=== PATIENT | female | born 1995 | race Caucasian/White ===

== ENCOUNTER → 2019-07-02 17:33 | Outpatient (BNVA) | payer OTHER, SELFPAY | PROVIDERS: Family Provider Family Medicine; Visit Provider Nurse Practitioner Family | DX: R39.9 Unspecified symptoms and signs involving the genitourinary system (principal); R10.9 Unspecified abdominal pain; Z86.19 Personal history of other infectious and parasitic diseases; R10.32 Left lower quadrant pain | CPT/HCPCS: 81000; 81025; 87491; 87591 ==

== ENCOUNTER 2019-07-12 13:30 | Emergency (ER) | payer OTHER, SELFPAY ==
[2019-07-12 13:37] VITALS: BP 165/97; PULSE 114; RESP 16; TEMP 36.7; O2SAT 99; BMI 27.1
--- NOTE | 2019-07-12 13:56 | ED_ITS ---
Documented by User: JARED Castellon 07/13/19 08:06 HPI - Female Genitourinary General: Chief complaint: Urogenital-Female Stated complaint: flank pain Time Seen by Provider: 07/12/19 13:36 History of Present Illness: HPI Narrative: Patient is a 23-year-old female comes to the ED with left flank pain. Patient has a past medical history of kidney stones. Left flank pain started about 2 weeks ago and has not gone away. Patient was seen on June 30 at urgent care and urinalysis there showed no acute findings or UTI. Left flank pain is rated a 7 out of 10. Patient has had Depo shot and does not have periods. Denies being . She denies any dysuria, hematuria, fever, chills, nausea or vomiting. Associated symptoms: Deny abdominal pain, headache(s) or nausea Review of Systems Const: Denies: fever, chills or fatigue Eyes: Denies: change in vision or eye discomfort ENMT: Denies: throat pain, painful swallowing, nasal discharge or nasal congestion Card: Denies: chest pain, palpitations, edema, swelling of feet/ankles, shortness of breath on exertion or shortness of breath when lying down Resp: Denies: shortness of breath, productive cough or non-productive cough GI: Denies: abdominal pain, nausea, vomiting, diarrhea, constipation or blood in stool : Reports: flank pain; Denies: painful urination or blood in urine Musc: Denies: neck pain, back pain or extremity swelling Skin/Breast: Denies: rash or new lesion Neuro: Denies: headache, numbness in extremities or weakness in extremities [facility] ED PFSH: Social History Smoking and tobacco status: current every day smoker Physical Exam Const: COMMON NORMALS: no apparent distress, oriented x3, healthy appearing and alert GENERAL APPEARANCE: cooperative, comfortable and well hydrated HENMT: COMMON NORMALS: normocephalic HEAD & SCALP: normocephalic MOUTH: oral and palatal mucosa normal THROAT: posterior oropharynx normal and uvula midline Eye: COMMON NORMALS: PERRL PUPIL: Yes PERRL Neck/C-Spine: COMMON NORMALS: supple GENERAL: Yes normal visual inspection Resp: COMMON NORMALS: normal respiratory effort, no retractions, no use of accessory muscles and clear to auscultation bilaterally AUSCULTATION: clear to auscultation bilaterally Cardio: COMMON NORMALS: regular rate, regular rhythm, S1 normal heart sound, S2 normal heart sound, no gallops, no clicks, no murmurs and peripheral pulses 2+ throughout RATE: regular rate RHYTHM: regular rhythm HEART SOUNDS: S1 normal and S2 normal PERIPHERAL PULSES: pulses 2+ throughout GI: COMMON NORMALS: normal to inspection, nondistended, normoactive bowel sounds, soft to palpation and no masses PALPATION: Yes soft, Yes tender Details: LLQ (mild tenderness) and No rebound tenderness present : BLADDER/KIDNEY EXAM: Yes CVA tenderness on the left (mild tenderness) Back/Pelvis: GENERAL BACK: Yes CVA tenderness Extremity: COMMON NORMALS: normal to inspection and no pedal edema Neuro: COMMON NORMALS: oriented x3 and moves all extremities SENSORIUM/ORIENTATION: Yes alert Skin: COMMON NORMALS: no rashes or lesions noted GENERAL SKIN EXAM: no rashes or lesions noted and dry skin Course Vital Signs: Vital signs: Vital Signs Temperature 98.0 F 07/12/19 13:37 Pulse Rate 79 07/12/19 18:18 Respiratory Rate 14 07/12/19 18:18 Blood Pressure 102/57 07/12/19 18:18 Pulse Oximetry 97 07/12/19 18:18 MDM - Female MDM Narrative: Medical decision making narrative: Patient is a 23-year-old female who comes to the ED with left flank and left lower quadrant abdominal pain. Physical exam was remarkable for some mild CVA tenderness on the left side and left lower quadrant tenderness. CBC CMP were normal and unremarkable. UA was unremarkable as well and showed no blood. KUB was normal. Patient was diagnosed with left lower quadrant abdominal pain and told to take Tylenol or ibuprofen for the pain. Patient was told to return to ED if symptoms worsen. Patient understood and agreed with plan. Lab Data: Attestation: I reviewed the patient's lab results. Labs: Lab Results 07/12/19 07/12/19 07/12/19 Range/Units 13:45 14:34 14:34 WBC 9.7 (4.0-10.0) 10^3/ uL RBC 4.83 (4.1-5.3) 10^6/u L Hgb 13.1 (11.5-15.3) g/dL Hct 42.3 (37.0-47.0) % MCV 87.6 (81-99) fL MCH 27.1 L (28.0-34.0) pg MCHC 31.0 (30.0-36.0) g/dL RDW 14.0 (12.1-15.1) % Plt Count 310 (130-400) 10^3/c mm MPV 11.3 H (7.4-10.4) fL Neut % (Auto) 65.3 % Lymph % (Auto) 24.8 % Snyder % (Auto) 8.0 % Eos % (Auto) 1.0 % Baso % (Auto) 0.6 % Neut # (Auto) 6.3 (1.8-7.7) 10^3/u L Lymph # (Auto) 2.4 (0.8-4.8) 10^3/u L Snyder # (Auto) 0.8 (0.2-0.9) 10^3/u L Eos # (Auto) 0.1 (0.0-0.8) 10^3/u L Baso # (Auto) 0.1 (0.0-0.1) 10^3/u L Nucleated RBC % (a uto) 0 % Nucleated RBCs # 0.0 /100WBC Sodium 141 (136-145) mmol/L Potassium 4.2 (3.5-5.1) mmol/L Chloride 105 (98-107) mmol/L Carbon Dioxide 24 (22-29) mmol/L Anion Gap 16.2 (5-19) BUN 10 (6-20) mg/dL Creatinine 0.8 (0.5-0.9) mg/dL GFR Calculation 88.9 L (90-130) mL/min Glucose 104 (65-115) mg/dL Calculated Osmolal ity 288 (285-295) mOsm/k g Calcium 9.3 (8.5-10.5) mg/dL Total Bilirubin 0.3 (0.15-1.2) mg/dL AST 13 (0-32) U/L ALT 11 (0-33) U/L Alkaline Phosphata se 62 (35-105) IU/L Total Protein 6.5 L (6.6-8.7) g/dL Albumin 4.3 (3.5-5.2) g/dL Globulin 2.2 (1.3-4.6) g/dL HCG, Qual (Negative) Urine Color Yellow (Yellow) Urine Appearance Clear (CLEAR) Urine pH 5 (5-7) Ur Specific Gravit y 1.020 (1.005-1.030) Urine Protein Neg (Negative) Urine Glucose (UA) Norm (Normal) Urine Ketones Negative (Negative) Urine Blood Neg (Negative) Urine Nitrate Negative (Negative) Urine Bilirubin Neg (NEGATIVE) Urine Urobilinogen Norm (Negative) mg/dL Ur Leukocyte Ryanne ase Negative (Negative) Urine RBC None (0-2) /hpf Urine WBC 0-4 H (0-5) /hpf Ur Squamous Epith Cells 0-4 H (0-5) Urine Bacteria Trace (NONE) Urine Mucus Trace 07/12/19 Range/Units 14:34 WBC (4.0-10.0) 10^3/ uL RBC (4.1-5.3) 10^6/u L Hgb (11.5-15.3) g/dL Hct (37.0-47.0) % MCV (81-99) fL MCH (28.0-34.0) pg MCHC (30.0-36.0) g/dL RDW (12.1-15.1) % Plt Count (130-400) 10^3/c mm MPV (7.4-10.4) fL Neut % (Auto) % Lymph % (Auto) % Snyder % (Auto) % Eos % (Auto) % Baso % (Auto) % Neut # (Auto) (1.8-7.7) 10^3/u L Lymph # (Auto) (0.8-4.8) 10^3/u L Snyder # (Auto) (0.2-0.9) 10^3/u L Eos # (Auto) (0.0-0.8) 10^3/u L Baso # (Auto) (0.0-0.1) 10^3/u L Nucleated RBC % (a uto) % Nucleated RBCs # /100WBC Sodium (136-145) mmol/L Potassium (3.5-5.1) mmol/L Chloride (98-107) mmol/L Carbon Dioxide (22-29) mmol/L Anion Gap (5-19) BUN (6-20) mg/dL Creatinine (0.5-0.9) mg/dL GFR Calculation (90-130) mL/min Glucose (65-115) mg/dL Calculated Osmolal ity (285-295) mOsm/k g Calcium (8.5-10.5) mg/dL Total Bilirubin (0.15-1.2) mg/dL AST (0-32) U/L ALT (0-33) U/L Alkaline Phosphata se (35-105) IU/L Total Protein (6.6-8.7) g/dL Albumin (3.5-5.2) g/dL Globulin (1.3-4.6) g/dL HCG, Qual Negative (Negative) Urine Color (Yellow) Urine Appearance (CLEAR) Urine pH (5-7) Ur Specific Gravit y (1.005-1.030) Urine Protein (Negative) Urine Glucose (UA) (Normal) Urine Ketones (Negative) Urine Blood (Negative) Urine Nitrate (Negative) Urine Bilirubin (NEGATIVE) Urine Urobilinogen (Negative) mg/dL Ur Leukocyte Ryanne ase (Negative) Urine RBC (0-2) /hpf Urine WBC (0-5) /hpf Ur Squamous Epith Cells (0-5) Urine Bacteria (NONE) Urine Mucus Imaging Data: CT Abd/Pel: Attestation: I personally reviewed and interpreted this imaging study as follows: Radiologist's impression: [place] [address] CT Scan Report Signed Patient: Juan Benson Unit #: [id number] : 1995 Age/Sex: 23 / F ADM Date: 07/12/19 Loc: ER Room/Bed: Attending Dr: Ordering Provider/Ordering MD: Chandrakant Mars Date of Service: 07/12/19 Procedure(s): CT abdomen pelvis w con* [id number] Accession Number(s): [id number] Report Number: [id number] PROCEDURE INFORMATION: Exam: CT Abdomen And Pelvis With Contrast Exam date and time: 07/12/2019 4:29 PM Age: 23 years old Clinical indication: Abdominal pain; Right; Patient HX: R flank pain w HX of stones; Additional info: Llq pain and left flank pain TECHNIQUE: Imaging protocol: Computed tomography of the abdomen and pelvis with intravenous contrast. Radiation optimization: All CT scans at this facility use at least one of these dose optimization techniques: automated exposure control; mA and/or kV adjustment per patient size (includes targeted exams where dose is matched to clinical indication); or iterative reconstruction. Contrast material: OMNI 300; Contrast volume: 95 ml; Contrast route: 20G COMPARISON: US Pelvis Female [id number] 01/03/2017 5:05 PM FINDINGS: Liver, spleen, pancreas, kidneys, and adrenal glands appear unremarkable. There are metallic clips adjacent to cecum. Bowel loops do not appear significantly dilated. No large amount of free fluid demonstrated. Abdominal aorta does not appear dilated. Visualized lung bases demonstrate no significant opacification. CT/CT abdomen pelvis w con* [id number] IMPRESSION: No acute process is demonstrated. Total DLP: 846.72 mGy-cm Radiation Dose CTDIVOL = (mGy): DLP = 846.72 (mGy-cm) Dictated By: Charlotte Mckeon MD Signed By: Charlotte Mckeon MD Signed Date/Time: 07/12/191716 DD/ 15 KUB: Attestation: I personally reviewed and interpreted this imaging study as fol lows: Radiologist's impression: [address] [address] XRay Report Signed Patient: Juan Benson Unit #: [id number] : 1995 Age/Sex: 23 / F ADM Date: 07/12/19 Loc: ER Room/Bed: Attending Dr: Ordering Provider/Ordering MD: Chandrakant Mars Date of Service: 07/12/19 Procedure(s): XR KUB portable 08254 Accession Number(s): [id number] Report Number: [id number] WS: [id number] XR KUB portable [id number] REASON FOR EXAM: LLQ abdominal pain and left flank pain FINDINGS: Fecal stasis changes are identified throughout the colon area. No definite stones are seen in the region of the right or left kidneys. No pneumoperitoneum. No definite air-fluid levels. XR/XR KUB portable [id number] IMPRESSION: Nonspecific abdominal findings. Dictated By: Josue Gomez DO Signed By: Josue Gomez DO Signed Date/Time: 07/13/19752 DD/ 2 Discharge Plan Discharge Patient Disposition: Home, Self-Care Clinical Impression: Abdominal pain Qualifiers: Abdominal location: left lower quadrant Qualified Code(s): R10.32 - Left lower quadrant pain Condition: Stable Prescriptions: No Action Depo-Estradiol 5 mg/mL oil See Rx Instructions .ROUTE .COMPLEX RF: 0 dicyclomine 10 mg capsule 10 mg PO QID PRN (Reason: UNKNOWN) RF: 0 montelukast [Singulair] 10 mg tablet 10 mg PO DAILY RF: 0 cetirizine 10 mg Tablet 10 mg PO DAILY RF: 0 ibuprofen 200 mg Tablet 200 mg PO Q6H PRN (Reason: Pain) RF: 0 Discharge Orders: Discharge Order (Routine); Ordered 07/12/19 Ordered By: Vivek Mcgee Discharge Diet: Advance as tolerated Discharge Activity: Increase activity as tolerated Patient Instructions: Abdominal Pain (ED) Activity Restrictions/Additional Instructions: Follow-up with medical provider as directed. Take ibuprofen Tylenol and/or tramadol as needed follow-up Dr. Hahn this week. Return to the ER or your medical provider if condition worsens. Please read and understand discharge instructions. If any questions ask please. Discharge Date/Time: 07/12/19 18:18 Coding Level of Care Code ED Research Technician for Chg Fwd Exam Comprehensive Documented by User: NATHALIE Feng 07/13/19 03:17 HPI - Female Genitourinary General: Chief complaint: Urogenital-Female Stated complaint: flank pain Time Seen by Provider: 07/12/19 13:36 PFSH ED PFSH: Social History Smoking and tobacco status: current every day smoker Course Vital Signs: Vital signs: Vital Signs Temperature 98.0 F 07/12/19 13:37 Pulse Rate 79 07/12/19 18:18 Respiratory Rate 14 07/12/19 18:18 Blood Pressure 102/57 07/12/19 18:18 Pulse Oximetry 97 07/12/19 18:18 MDM - Female Lab Data: Labs: Lab Results 07/12/19 07/12/19 07/12/19 Range/Units 13:45 14:34 14:34 WBC 9.7 (4.0-10.0) 10^3/ uL RBC 4.83 (4.1-5.3) 10^6/u L Hgb 13.1 (11.5-15.3) g/dL Hct 42.3 (37.0-47.0) % MCV 87.6 (81-99) fL MCH 27.1 L (28.0-34.0) pg MCHC 31.0 (30.0-36.0) g/dL RDW 14.0 (12.1-15.1) % Plt Count 310 (130-400) 10^3/c mm MPV 11.3 H (7.4-10.4) fL Neut % (Auto) 65.3 % Lymph % (Auto) 24.8 % Snyder % (Auto) 8.0 % Eos % (Auto) 1.0 % Baso % (Auto) 0.6 % Neut # (Auto) 6.3 (1.8-7.7) 10^3/u L Lymph # (Auto) 2.4 (0.8-4.8) 10^3/u L Snyder # (Auto) 0.8 (0.2-0.9) 10^3/u L Eos # (Auto) 0.1 (0.0-0.8) 10^3/u L Baso # (Auto) 0.1 (0.0-0.1) 10^3/u L Nucleated RBC % (a uto) 0 % Nucleated RBCs # 0.0 /100WBC Sodium 141 (136-145) mmol/L Potassium 4.2 (3.5-5.1) mmol/L Chloride 105 (98-107) mmol/L Carbon Dioxide 24 (22-29) mmol/L Anion Gap 16.2 (5-19) BUN 10 (6-20) mg/dL Creatinine 0.8 (0.5-0.9) mg/dL GFR Calculation 88.9 L (90-130) mL/min Glucose 104 (65-115) mg/dL Calculated Osmolal ity 288 (285-295) mOsm/k g Calcium 9.3 (8.5-10.5) mg/dL Total Bilirubin 0.3 (0.15-1.2) mg/dL AST 13 (0-32) U/L ALT 11 (0-33) U/L Alkaline Phosphata se 62 (35-105) IU/L Total Protein 6.5 L (6.6-8.7) g/dL Albumin 4.3 (3.5-5.2) g/dL Globulin 2.2 (1.3-4.6) g/dL HCG, Qual (Negative) Urine Color Yellow (Yellow) Urine Appearance Clear (CLEAR) Urine pH 5 (5-7) Ur Specific Gravit y 1.020 (1.005-1.030) Urine Protein Neg (Negative) Urine Glucose (UA) Norm (Normal) Urine Ketones Negative (Negative) Urine Blood Neg (Negative) Urine Nitrate Negative (Negative) Urine Bilirubin Neg (NEGATIVE) Urine Urobilinogen Norm (Negative) mg/dL Ur Leukocyte Ryanne ase Negative (Negative) Urine RBC None (0-2) /hpf Urine WBC 0-4 H (0-5) /hpf Ur Squamous Epith Cells 0-4 H (0-5) Urine Bacteria Trace (NONE) Urine Mucus Trace 07/12/19 Range/Units 14:34 WBC (4.0-10.0) 10^3/ uL RBC (4.1-5.3) 10^6/u L Hgb (11.5-15.3) g/dL Hct (37.0-47.0) % MCV (81-99) fL MCH (28.0-34.0) pg MCHC (30.0-36.0) g/dL RDW (12.1-15.1) % Plt Count (130-400) 10^3/c mm MPV (7.4-10.4) fL Neut % (Auto) % Lymph % (Auto) % Snyder % (Auto) % Eos % (Auto) % Baso % (Auto) % Neut # (Auto) (1.8-7.7) 10^3/u L Lymph # (Auto) (0.8-4.8) 10^3/u L Snyder # (Auto) (0.2-0.9) 10^3/u L Eos # (Auto) (0.0-0.8) 10^3/u L Baso # (Auto) (0.0-0.1) 10^3/u L Nucleated RBC % (a uto) % Nucleated RBCs # /100WBC Sodium (136-145) mmol/L Potassium (3.5-5.1) mmol/L Chloride (98-107) mmol/L Carbon Dioxide (22-29) mmol/L Anion Gap (5-19) BUN (6-20) mg/dL Creatinine (0.5-0.9) mg/dL GFR Calculation (90-130) mL/min Glucose (65-115) mg/dL Calculated Osmolal ity (285-295) mOsm/k g Calcium (8.5-10.5) mg/dL Total Bilirubin (0.15-1.2) mg/dL AST (0-32) U/L ALT (0-33) U/L Alkaline Phosphata se (35-105) IU/L Total Protein (6.6-8.7) g/dL Albumin (3.5-5.2) g/dL Globulin (1.3-4.6) g/dL HCG, Qual Negative (Negative) Urine Color (Yellow) Urine Appearance (CLEAR) Urine pH (5-7) Ur Specific Gravit y (1.005-1.030) Urine Protein (Negative) Urine Glucose (UA) (Normal) Urine Ketones (Negative) Urine Blood (Negative) Urine Nitrate (Negative) Urine Bilirubin (NEGATIVE) Urine Urobilinogen (Negative) mg/dL Ur Leukocyte Ryanne ase (Negative) Urine RBC (0-2) /hpf Urine WBC (0-5) /hpf Ur Squamous Epith Cells (0-5) Urine Bacteria (NONE) Urine Mucus Discharge Plan Discharge Patient Disposition: Home, Self-Care Clinical Impression: Abdominal pain Qualifiers: Abdominal location: left lower quadrant Qualified Code(s): R10.32 - Left lower quadrant pain Condition: Stable Prescriptions: No Action Depo-Estradiol 5 mg/mL oil See Rx Instructions .ROUTE .COMPLEX RF: 0 dicyclomine 10 mg capsule 10 mg PO QID PRN (Reason: UNKNOWN) RF: 0 montelukast [Singulair] 10 mg tablet 10 mg PO DAILY RF: 0 cetirizine 10 mg Tablet 10 mg PO DAILY RF: 0 ibuprofen 200 mg Tablet 200 mg PO Q6H PRN (Reason: Pain) RF: 0 Discharge Orders: Discharge Order (Routine); Ordered 07/12/19 Ordered By: Vivek Mcgee Discharge Diet: Advance as tolerated Discharge Activity: Increase activity as tolerated Patient Instructions: Abdominal Pain (ED) Activity Restrictions/Additional Instructions: Follow-up with medical provider as directed. Take ibuprofen Tylenol and/or tramadol as needed follow-up Dr. Hahn this week. Return to the ER or your [facility] provider if condition worsens. Please read and understand discharge instructions. If any questions ask please. Discharge Date/Time: 07/12/19 18:18 Coding Level of Care Code ED Research Technician for Cecil Fwren Exam Comprehensive
[2019-07-12 14:37] VITALS: BP 145/81; PULSE 108; RESP 14; O2SAT 99
[2019-07-12] MEDS: sodium chloride 0.9% 1,000 ML 999 ML IV (14:37)
[2019-07-12] MEDS: morphine 4 mg/mL SDV 1 mL IVP (14:38)
[2019-07-12] MEDS: ondansetron 2 mg/ML SDV 2 mL 4 MG IVP (14:38)
[2019-07-12 14:56] LABS: Basophils # 0.1 10^3/uL (0.0-0.1); Basophils % 0.6 %; Eosinophils # 0.1 10^3/uL (0.0-0.8); Hematocrit 42.3 % (37.0-47.0); Hemoglobin 13.1 g/dL (11.5-15.3); Lymphocytes # 2.4 10^3/uL (0.8-4.8); Lymphocytes % 24.8 %; Mean Corpuscular Hemoglobin 27.1 pg (28.0-34.0); Mean Corpuscular Volume 87.6 fL (81-99); Mean Platelet Volume 11.3 fL (7.4-10.4); Monocytes # 0.8 10^3/uL (0.2-0.9); Neutrophils # 6.3 10^3/uL (1.8-7.7); Neutrophils % 65.3 %; Nucleated Red Blood Cells % 0 %; Platelet Count 310 10^3/cmm (130-400); Red Blood Count 4.83 10^6/uL (4.1-5.3); White Blood Count 9.7 10^3/uL (4.0-10.0)
[2019-07-12 15:04] LABS: HCG, Serum Qual Negative (Negative)
--- NOTE | 2019-07-12 15:08 | XR_ITS ---
WS: [id number] XR KUB portable [id number] REASON FOR EXAM: LLQ abdominal pain and left flank pain FINDINGS: Fecal stasis changes are identified throughout the colon area. No definite stones are seen in the region of the right or left kidneys. No pneumoperitoneum. No definite air-fluid levels. XR/XR KUB portable [id number] IMPRESSION: Nonspecific abdominal findings.
[2019-07-12 15:14] LABS: Bilirubin Urine Neg (NEGATIVE); Blood Urine Neg (Negative); Glucose Urine UA Norm (Normal); Ketones Urine Negative (Negative); Leukocyte Esterase Urine Negative (Negative); Nitrate Urine Negative (Negative); Protein Urine Neg (Negative); Urine Appearance Clear (CLEAR); Urine Color Yellow (Yellow); Urobilinogen Urine Norm (Negative); pH Urine 5 (5-7)
[2019-07-12 15:16] LABS: Bacteria Urine TRACE; Mucus Urine TRACE; Squamous Epithelial Cell Urine 0-4 (0-5); WBC Urine 0-4 /hpf (0-5)
[2019-07-12 15:17] LABS: Add Urine Culture? No
[2019-07-12 15:19] LABS: Alanine Aminotransferase 11 U/L (0-33); Albumin Level 4.3 g/dL (3.5-5.2); Alkaline Phosphatase 62 IU/L (35-105); Anion Gap 16.2 (5-19); Aspartate Amino Transferase 13 U/L (0-32); Blood Urea Nitrogen 10 mg/dL (6-20); Calcium 9.3 mg/dL (8.5-10.5); Carbon Dioxide 24 mmol/L (22-29); Chloride 105 mmol/L (98-107); Globulin 2.2 g/dL (1.3-4.6); Glomerular Filtration Rate 88.9 mL/min (90-130); Glucose 104 mg/dL (65-115); Osmolality Calculated 288 mOsm/kg (285-295); Potassium 4.2 mmol/L (3.5-5.1); Sodium 141 mmol/L (136-145); Total Bilirubin 0.3 mg/dL (0.15-1.2); Total Protein 6.5 g/dL (6.6-8.7)
[2019-07-12 15:56] VITALS: BP 121/71; PULSE 92; RESP 14; O2SAT 97
--- NOTE | 2019-07-12 16:27 | CTR_ITS ---
PROCEDURE INFORMATION: Exam: CT Abdomen And Pelvis With Contrast Exam date and time: 07/12/2019 4:29 PM Age: 23 years old Clinical indication: Abdominal pain; Right; Patient HX: R flank pain w HX of stones; Additional info: Llq pain and left flank pain TECHNIQUE: Imaging protocol: Computed tomography of the abdomen and pelvis with intravenous contrast. Radiation optimization: All CT scans at this facility use at least one of these dose optimization techniques: automated exposure control; mA and/or kV adjustment per patient size (includes targeted exams where dose is matched to clinical indication); or iterative reconstruction. Contrast material: OMNI 300; Contrast volume: 95 ml; Contrast route: 20G COMPARISON: US Pelvis Female [id number] 01/03/2017 5:05 PM FINDINGS: Liver, spleen, pancreas, kidneys, and adrenal glands appear unremarkable. There are metallic clips adjacent to cecum. Bowel loops do not appear significantly dilated. No large amount of free fluid demonstrated. Abdominal aorta does not appear dilated. Visualized lung bases demonstrate no significant opacification. CT/CT abdomen pelvis w con* [id number] IMPRESSION: No acute process is demonstrated. Total DLP: 846.72 mGy-cm Radiation Dose CTDIVOL = (mGy): DLP = 846.72 (mGy-cm)
[2019-07-12] MEDS: iohexol 300 mg/mL 100 mL Btl IV (16:47)
[2019-07-12] MEDS: ketorolac 30 mg/mL INJ IVP (17:00)
[2019-07-12 17:01] VITALS: BP 100/67; PULSE 94; RESP 14; O2SAT 99
[2019-07-12 18:18] VITALS: BP 102/57; PULSE 79; RESP 14; O2SAT 97
== END 2019-07-12 18:18 | disposition home or self-care (01) ==
PROVIDERS: Physician Assistant; Emergency Provider Nurse Practitioner Family
DX: R10.32 Left lower quadrant pain (principal); F17.210 Nicotine dependence, cigarettes, uncomplicated
CPT/HCPCS: 12345; 74018; 74177; 80053; 81001; 84703; 85025; 96361; 96374; 96375; 99283; 99284; J1885; J2270; J2405; J7030; Q9967

== ENCOUNTER → 2019-10-27 15:55 | Outpatient (BNVA) | payer OTHER, SELFPAY | PROVIDERS: Visit Provider Family Medicine | DX: R53.82 Chronic fatigue, unspecified (principal) | CPT/HCPCS: 80053; 84443; 85025 ==

== ENCOUNTER 2019-11-22 02:00 | Emergency (ER) | payer OTHER, SELFPAY ==
[2019-11-22 02:05] VITALS: BP 125/78; PULSE 88; RESP 18; TEMP 37; O2SAT 98; BMI 25.8
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
== END 2019-11-22 02:29 | disposition home or self-care (01) ==
PROVIDERS: Emergency Provider Physician Assistant
DX: S01.81XA Laceration without foreign body of other part of head, initial encounter (principal); F17.210 Nicotine dependence, cigarettes, uncomplicated; Y04.2XXA Assault by strike against or bumped into by another person, initial encounter
CPT/HCPCS: 12011; 12345; 96365; 96376; 99281; 99283

== ENCOUNTER → 2019-12-04 11:20 | Outpatient (BNVA) | payer OTHER, SELFPAY | PROVIDERS: PCP Family Medicine; Visit Provider Family Medicine | DX: R19.7 Diarrhea, unspecified (principal) | CPT/HCPCS: 87205; 87493; 87506 ==

== ENCOUNTER → 2020-01-06 17:26 | Outpatient (BNVA) | payer OTHER, SELFPAY | PROVIDERS: PCP Family Medicine; Visit Provider Nurse Practitioner Family | DX: N39.0 Urinary tract infection, site not specified (principal) | CPT/HCPCS: 81000; 87077; 87086; 87184 ==

== ENCOUNTER 2020-01-09 22:23 | Emergency (ER) | payer OTHER, SELFPAY ==
[2020-01-09 22:42] VITALS: BP 171/81; PULSE 132; RESP 12; TEMP 36.7; O2SAT 100; BMI 26.6
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
--- NOTE | 2020-01-09 23:02 | CTR_ITS ---
PROCEDURE INFORMATION: Exam: CT Cervical Spine Without Contrast Exam date and time: 01/09/2020 11:29 PM Age: 24 years old Clinical indication: Injury or trauma; Fall; Blunt trauma; Additional info: Altered mental status/fall TECHNIQUE: Imaging protocol: Computed tomography images of the cervical spine without contrast. Radiation optimization: All CT scans at this facility use at least one of these dose optimization techniques: automated exposure control; mA and/or kV adjustment per patient size (includes targeted exams where dose is matched to clinical indication); or iterative reconstruction. COMPARISON: CT Cervical Spine wo* [id number] 2016-05-15 19:31 RADIATION DOSE METRICS: Total DLP (mGy-cm): 592.12 FINDINGS: Bones/joints: Straightening of the normal cervical lordotic curvature. Normal vertebral body heights and alignments. No fractures. Discs/Spinal canal/Neural foramina: Small disc bulge/protrusions causing up to mild spinal stenosis greatest at C5-C6. Soft tissues: Unremarkable. Lungs: Lung apices are normal. CT/CT cervical spin wo con* [id number] IMPRESSION: No acute fracture/subluxation. Radiation Dose CTDIVOL = (mGy): DLP = 592.12 (mGy-cm)
--- NOTE | 2020-01-09 23:02 | CTR_ITS ---
PROCEDURE INFORMATION: Exam: CT Head Without Contrast Exam date and time: 01/09/2020 11:29 PM Age: 24 years old Clinical indication: Altered mental status/memory loss TECHNIQUE: Imaging protocol: Computed tomography of the head without contrast. Radiation optimization: All CT scans at this facility use at least one of these dose optimization techniques: automated exposure control; mA and/or kV adjustment per patient size (includes targeted exams where dose is matched to clinical indication); or iterative reconstruction. COMPARISON: CT head wo con* [id number] 2017-09-24 13:58 RADIATION DOSE METRICS: Total DLP (mGy-cm): 771.6 FINDINGS: Brain: Normal. No hemorrhage. Unremarkable white matter. No mass effect. Cerebral ventricles: No ventriculomegaly. Bones/joints: Unremarkable. No acute fracture. Paranasal sinuses: Visualized sinuses are unremarkable. No fluid levels. Mastoid air cells: Visualized mastoid air cells are well aerated. Soft tissues: Unremarkable. CT/CT head wo con* [id number] IMPRESSION: No acute intracranial abnormality. Radiation Dose CTDIVOL = (mGy): DLP = 771.6 (mGy-cm)
--- NOTE | 2020-01-09 23:03 | ECG_ITS ---
[facility] Test Date: 2020-01-10 Pat Name: Juan Benson Department: Room: Gender: Female Teacher Specialist: : 1995 Requested By: Cher Cross Order Number: [id number] Garcia MD: Caro Barbour M.D. Measurements Intervals [place] Rate: 115 P: 38 PA: 108 QRS: 75 QRSD: 89 T: 49 QT: 312 QTc: 432 Interpretive Statements SINUS TACHYCARDIA WITH SHORT PA INTERVAL Compared to ECG 09/24/2017 11:57:03 Short PA interval now present Sinus rhythm no longer present Sinus arrhythmia no longer present Electronically Signed On 01-10-2020 11:29:43 SUPERVISOR SMOKE CONTROL by Caro Barbour M.D. [id number]
--- NOTE | 2020-01-09 23:03 | XRR_ITS ---
PROCEDURE INFORMATION: Exam: XR Chest, 1 View Exam date and time: 01/09/2020 11:43 PM Age: 24 years old Clinical indication: Other: AMS; Patient HX: Alcohol, altered mental status, unable to obtain history TECHNIQUE: Imaging protocol: XR of the chest Views: 1 view. COMPARISON: CR Chest 2 views* [id number] 2017-09-24 14:07 FINDINGS: Lungs: Unremarkable. No consolidation. Pleural space: Unremarkable. No pleural effusion. No pneumothorax. Heart/Mediastinum: Unremarkable. No cardiomegaly. Bones/joints: Unremarkable. XR/XR chest 1V portable [id number] IMPRESSION: No acute findings.
--- NOTE | 2020-01-09 23:15 | PC.NURSE ---
Unable to do the CIWA. Pt nonverbal and not following simple commands
--- NOTE | 2020-01-09 23:47 | PC.NURSE ---
Pt return from CT
[2020-01-10 00:10] LABS: Basophils # 0.1 10^3/uL (0.0-0.1); Basophils % 0.4 %; Eosinophils % 0.1 %; Hematocrit 40.8 % (37.0-47.0); Hemoglobin 13.8 g/dL (11.5-15.3); Lymphocytes # 1.1 10^3/uL (0.8-4.8); Mean Corpuscular HGB Conc 33.8 g/dL (30.0-36.0); Mean Corpuscular Hemoglobin 30.7 pg (28.0-34.0); Mean Corpuscular Volume 90.9 fL (81-99); Mean Platelet Volume 11.3 fL (7.4-10.4); Monocytes # 0.9 10^3/uL (0.2-0.9); Monocytes % 5.6 %; Neutrophils % 86.3 %; Nucleated Red Blood Cells % 0 %; Platelet Count 305 10^3/cmm (130-400); Red Blood Count 4.49 10^6/uL (4.1-5.3); White Blood Count 16.1 10^3/uL (4.0-10.0)
[2020-01-10 00:16] LABS: ABG PCO2 37.1 mmHg (35-45); ABG PH Result 7.39 (7.35-7.45); PO2 ABG 83.7 mmHg (80.0-100.0)
[2020-01-10 00:17] LABS: Base Excess ABG -2.3 mmol/L (-2.0-2.0); Blood Gas Allen Test POS; HCO3 ABG 22.3 mmol/L (22-26); Oxygen Device RA
[2020-01-10 00:18] LABS: Blood Gas Sample Site LEFT RADIAL; Blood Gas Sample Type ARTERIAL
[2020-01-10 00:28] LABS: Lactic Sepsis W/Reflex 1.4 mmol/L (0.5-2.2)
[2020-01-10 00:31] LABS: Troponin(5th) Baseline 6 ng/L (0-10)
[2020-01-10 00:32] LABS: Alanine Aminotransferase 14 U/L (0-33); Albumin Level 4.4 g/dL (3.5-5.2); Alkaline Phosphatase 78 IU/L (35-105); Aspartate Amino Transferase 13 U/L (0-32); Blood Urea Nitrogen 9 mg/dL (6-20); Calcium 9.3 mg/dL (8.5-10.5); Carbon Dioxide 23 mmol/L (22-29); Chloride 107 mmol/L (98-107); Creatine Phosphokinase 78 U/L (26-192); Globulin 2.1 g/dL (1.3-4.6); Glomerular Filtration Rate 102.8 mL/min (90-130); Glucose 123 mg/dL (65-115); Magnesium 2.2 mg/dL (1.7-2.3); Osmolality Calculated 290 mOsm/kg (285-295); Sodium 140 mmol/L (136-145); Total Bilirubin 0.2 mg/dL (0.15-1.2); Total Protein 6.5 g/dL (6.6-8.7)
[2020-01-10 00:34] LABS: Anion Gap 14.3 (5-19); Potassium 4.3 mmol/L (3.5-5.1)
[2020-01-10 00:39] LABS: Ketone (Acetest) Serum Negative (Negative)
[2020-01-10 00:47] VITALS: BP 124/71; PULSE 116; RESP 19; O2SAT 98
[2020-01-10 00:50] LABS: HCG, Serum Qual Negative (Negative)
[2020-01-10 00:58] LABS: Add Urine Microscopic? YES; Bilirubin Urine Neg (Negative); Blood Urine Neg (Negative); Glucose Urine UA Norm (Normal); Ketones Urine Negative (Negative); Leukocyte Esterase Urine 2+ (Negative); Nitrate Urine Negative (Negative); Protein Urine Neg (Negative); Specific Gravity, Urine 1.015 (1.005-1.030); Urine Color Yellow (Yellow); Urobilinogen Urine Norm (Negative); pH Urine 5 (5-7)
[2020-01-10 01:00] VITALS: BP 116/65; PULSE 101; RESP 16; O2SAT 97
--- NOTE | 2020-01-10 01:03 | ECG_ITS ---
[facility] Test Date: 2020-01-10 Pat Name: Juan Benson Department: Room: Gender: Female [employer]: : 1995 Requested By: Cher Cross Order Number: [id number] Garcia MD: Caro Barbour M.D. Measurements Intervals [place] Rate: 108 P: 45 AL: 120 QRS: 79 QRSD: 91 T: 50 QT: 337 QTc: 452 Interpretive Statements SINUS TACHYCARDIA Compared to ECG 01/10/2020 00:10:57 Short AL interval no longer present Electronically Signed On 01-10-2020 11:35:18 SUPERVISOR MICROWAVE by Caro Barbour M.D. [id number]
[2020-01-10 01:04] LABS: Amphetamines Screen Urine Negative (Negative); Barbiturates Screen Urine Negative (Negative); Benzodiazepines Screen Urine Negative (Negative); Cocaine Screen Urine Negative (Negative); Opiate Screen Urine Negative (Negative); PCP Screen Urine Negative (Negative); THC Screen Urine Positive (Negative)
[2020-01-10 01:05] LABS: RBC Urine 0-4 /hpf (0-2)
[2020-01-10 01:06] LABS: Add Urine Culture? No; Bacteria Urine TRACE /hpf; Squamous Epithelial Cell Urine 15-25 /hpf (0-5); WBC Urine 55-80 /hpf (0-5)
[2020-01-10] MEDS: sodium chloride 0.9% 1,000 ML 999 ML IV (01:15)
[2020-01-10] MEDS: sodium chloride 0.9% 1,000 ML 100 ML IV (01:39)
--- NOTE | 2020-01-10 01:43 | PC.NURSE ---
Pt moves arms, open eyes and assist with IV medication, placement. does not speak when ask questions. Mother at bedside, talking for pt only when ask.
[2020-01-10 02:00] VITALS: BP 107/62; PULSE 102; RESP 20; O2SAT 98
--- NOTE | 2020-01-10 02:14 | PC.NURSE ---
mother at bedside. Pt appears to be resting with eyes closed. Normal resp. Pt continues to be non verbal
--- NOTE | 2020-01-10 02:29 | PC.NURSE ---
Doctor requested a road test to make sure the patient was able to maintain gait and balance. Patient walked from her room to the double doors at the end of the hallway back to her room with no assistance from me. She is also beginning to talk again and is more awake and alert. The doctor has not been notified.
[2020-01-10 02:43] LABS: Alcohol Level < 10 mg/dL (0-10)
--- NOTE | 2020-01-10 02:46 | PC.NURSE ---
Trop drawn and sent. Per protocol via SL, waste 6 cc blood, pt tolerated.
[2020-01-10 03:13] LABS: Troponin 5 2HR Delta 0 ABS# (0-10)
[2020-01-10 03:18] VITALS: BP 111/63; PULSE 110; RESP 22; O2SAT 98
== END 2020-01-10 03:15 | disposition home or self-care (01) ==
PROVIDERS: Emergency Provider Emergency Medicine; PCP Family Medicine
DX: R41.82 Altered mental status, unspecified (principal); N39.0 Urinary tract infection, site not specified; F19.10 Other psychoactive substance abuse, uncomplicated; F17.210 Nicotine dependence, cigarettes, uncomplicated
CPT/HCPCS: 12345; 70450; 71045; 72125; 80053; 80306; 80307; 81001; 82009; 82550; 82803; 83605; 83735; 84484; 84703; 85025; 93005; 96360; 99284; J7030

== ENCOUNTER → 2020-02-09 15:31 | Outpatient (BNVA) | payer OTHER, SELFPAY | PROVIDERS: PCP Family Medicine; Visit Provider Family Medicine | DX: R30.0 Dysuria (principal) | CPT/HCPCS: 81000; 87086 ==

== ENCOUNTER 2020-03-29 08:31 | Outpatient (CLI) | payer OTHER, SELFPAY ==
--- NOTE | 2020-03-29 08:37 | US_ITS ---
WS: [id number] ULTRASOUND RIGHT BREAST HISTORY: right breast mass, 24-year-old. COMPARISON: None available. TECHNIQUE: 2-D and Doppler. There is a well-circumscribed mass which is predominantly hypoechoic with a increased echogenicity ce ntrally. There is increased vascularity. This is a superficial mass at 10:00, 4 cm from the nipple. V ascularity is central although increased. US/US breast RT limited* [id number] IMPRESSION: BI-RADS: 4-Suspicious Finding-Biopsy Should Be Considered FOLLOW-UP: Biopsy Recommended Ultrasound-guided biopsy recommended of the RIGHT breast mass at 10:00. Strongl y favor this is probably a benign lymph node. The vascularity is slightly incre ased for a lymph node. Biopsy recommended to confirm pathology.
== END 2020-03-29 08:32 | disposition home or self-care (01) ==
LOC: RAD 08:34
PROVIDERS: PCP Family Medicine; Visit Provider Family Medicine
DX: N63.11 Unspecified lump in the right breast, upper outer quadrant (principal)
CPT/HCPCS: 76642

== ENCOUNTER → 2020-04-02 08:14 | Outpatient (BNVA) | payer OTHER, SELFPAY | PROVIDERS: PCP Family Medicine; Visit Provider Family Medicine | DX: Z01.818 Encounter for other preprocedural examination (principal) | CPT/HCPCS: 85025 ==

== ENCOUNTER 2020-04-06 07:21 | Outpatient (CLI) | payer OTHER, SELFPAY ==
--- NOTE | 2020-04-06 07:26 | US_ITS ---
WS: [id number] ULTRASOUND-GUIDED RIGHT BREAST BIOPSY HISTORY: RIGHT BREAST MASS COMPARISON: 03/29/2020 Procedure, risks and complications are explained to the patient. Medications are reviewed. Consent is obtained. The mass in the RIGHT breast is localized with ultrasound. Mass localized cyst at 10:00 at 4 cm from the nipple. Skin is cleansed with ChloraPrep and anesthetized with 1% buffered lidocaine. Small derma tome is made. Under sterile conditions mass is biopsied with a 14-gauge Achieve needle. Multiple core biopsies are performed. Material placed in formalin and sent to pathology for review. No complicatio ns encountered. Breast tissue marker (Bard ultrasound enhanced ribbon): Single. Patient left the radiology suite with no complications. Patient is instructed to return to [facility] or [facility] with any concerns. US/[place] [id number] IMPRESSION: 1. Uncomplicated core needle biopsy RIGHT breast mass at 10:00, 4 cm from the nipple. PATHOLOGY: Benign lymph node with reactive follicular hyperplasia. No malignanc y. RECOMMENDATION: No additional follow-up necessary. Pathology and mammographic f indings are concordant.
== END 2020-04-06 07:22 | disposition home or self-care (01) ==
LOC: RAD 07:23
PROVIDERS: PCP Family Medicine; Visit Provider Family Medicine
DX: N63.11 Unspecified lump in the right breast, upper outer quadrant (principal)
CPT/HCPCS: 19083; 88305